=== PATIENT | female | born 1985 | race Caucasian/White ===

== ENCOUNTER 2016-09-21 09:41 | Emergency (ER) | payer MEDICARE, OTHER ==
[~2016-09-21] VITALS: Ht 162.6 cm; Wt 68.0 kg
[2016-09-21 09:51] VITALS: Ht 162.6 cm; Wt 68.0 kg
[2016-09-21] MEDS ORDERED: SSD1C20 TOP (09:55)
[2016-09-21] MEDS ORDERED: IBUP-1542 PO (09:55)
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
== END 2016-09-21 10:12 | disposition home or self-care (01) ==
LOC: E/R 09:41
DX: T23.271A Burn of second degree of right wrist, initial encounter (principal); F17.210 Nicotine dependence, cigarettes, uncomplicated; X08.8XXA Exposure to other specified smoke, fire and flames, initial encounter; Y92.9 Unspecified place or not applicable
CPT/HCPCS: 99283